=== PATIENT | female | born 1980 | race Asian ===

== ENCOUNTER → 2020-01-27 13:49 | Outpatient (CLI) | payer BC, SELFPAY | PROVIDERS: Visit Provider Physician Assistant | DX: J32.9 Chronic sinusitis, unspecified (principal) | CPT/HCPCS: 87070; 87075; 87077; 87186; 87205 ==

== ENCOUNTER → 2020-01-28 12:44 | Outpatient (CLI) | payer BC, SELFPAY ==
--- NOTE | 2020-01-28 12:45 | DI.CT.S_ITS ---
PROCEDURE: CT SINUS SCREEN WO CON INDICATIONS: sinus pressure, cysts in nose, weeping skin on nose TECHNIQUE: Noncontrast 3.0 mm axial images acquired from the frontal sinuses to the mid-sella, with coronal and sagittal reformats. For radiation dose reduction, the following was used: automated exposure control, adjustment of mA and/or kV according to patient size. COMPARISON: None. FINDINGS: Image quality: Excellent. Maxillary Sinuses: No bony remodeling or destruction. Sinuses are clear except for slight mucosal thickening of the posterior margin of the left maxillary sinus. In contrast, there is an air-fluid level within the posterior aspect of the right maxillary sinus having a maximal thickness of 1 cm.. Ethmoid Air Cells: No bony remodeling or destruction. Sinuses are clear. Sphenoid Sinuses: No bony remodeling or destruction. Sinuses are clear. Frontal Sinuses: No bony remodeling or destruction. Sinuses are clear. Ostiomeatal Complexes: Ostiomeatal complexes are patent. No Gabriele cells. Miscellaneous: Visualized intra-orbital contents are normal. No josseline bullosa or paradoxical turbinate curvature. No nasal septal deviation. IMPRESSION: Acute right maxillary sinusitis appears present given the 1 cm air fluid level identified within the posterior third of the sinus cavity. Dictated by: Dean Puga M.D. on 01/28/2020 at 13:23 Approved by: Dean Puga M.D. on 01/28/2020 at 13:25
== END ==
PROVIDERS: Referring Provider Physician Assistant; Visit Provider Physician Assistant
DX: J01.00 Acute maxillary sinusitis, unspecified (principal)
CPT/HCPCS: 70486

== ENCOUNTER → 2020-06-04 09:08 | Outpatient (CLI) | payer BC, SELFPAY ==
[2020-06-04 09:44] LABS: Add Manual Diff / Slide Review NO; Basophils Absolute Auto 100 /uL (0-100); Basophils Percent Auto 0.8 % (0-2); Eosinophils Absolute Auto 1500 /uL (0-450); Eosinophils Percent Auto 16.5 % (2-4); Hematocrit 42.7 % (36-46); Hemoglobin 14.6 g/dL (12.0-16.0); Lymphocytes Absolute Auto 2000 /uL (1100-4500); Mean Corpuscular HGB Conc 34.1 % (30-36); Mean Corpuscular Hemoglobin 30.3 PG (26-34); Mean Corpuscular Volume 88.8 fL (80-100); Monocytes Absolute Auto 400 /uL (0-900); Monocytes Percent Auto 4.2 % (3-14); Neutrophils Absolute Auto 5200 /uL (1500-7000); Neutrophils Percent Auto 56.5 % (50-75); Platelet Count 271 X10^3/uL (150-400); Red Blood Cell Count 4.81 X10^6/uL (4.0-5.2); Red Cell Distribution Width 12.9 % (11.6-14.8); White Blood Cell Count 9.2 X10^3/uL (4.5-11.0)
[2020-06-04 10:09] LABS: Hemoglobin A1C% w Est Avg Glu 6.2 % (4.0-6.0)
[2020-06-04 10:11] LABS: Alanine Aminotransferase 34 IU/L (<35); Albumin 4.7 g/dL (3.5-5.0); Albumin Globulin Ratio 1.4 (1.0-2.8); Alkaline Phosphatase 90 U/L (38-126); Aspartate Aminotransferase 34 IU/L (14-36); Bilirubin Total 0.4 mg/dL (0.2-1.3); Bilirubin Unconjugated 0.4 mg/dL (0.0-1.1); Cholesterol 302 mg/dL (140-199); Globulin 3.4 g/dL (1.7-4.1); HDL Cholesterol 42 mg/dL (40-60); HEMOLYSIS 16 (0-50); LDL Cholesterol Calculated 194 mg/dL (<100); Total Protein 8.1 g/dL (6.3-8.2); Triglycerides 328 mg/dL (35-150)
[2020-06-04 10:34] LABS: Pregnancy Test Serum,Qual Negative (Negative)
[2020-06-04 10:51] LABS: TSH w/ Reflex to FT4 2.16 uIU/mL (0.47-4.68)
[2020-06-05 07:27] LABS: Dehydroepiandrosterone Sulfate 17.2 ug/dL (57.3-279.2)
[2020-06-08 11:10] LABS: Percent Free Testosterone 2.18 % (0.50-2.80); Testosterone Free 0.49 ng/dL (0.10-0.85); Testosterone Total 22.6 ng/dL (10.0-55.0)
== END ==
PROVIDERS: PCP Family Medicine; Referring Provider Dermatology; Visit Provider Dermatology
DX: Z00.01 Encounter for general adult medical examination with abnormal findings (principal); L70.0 Acne vulgaris; L81.0 Postinflammatory hyperpigmentation; L90.5 Scar conditions and fibrosis of skin; F41.9 Anxiety disorder, unspecified; E28.2 Polycystic ovarian syndrome
CPT/HCPCS: 36415; 80061; 80076; 82627; 83036; 84402; 84403; 84443; 84703; 85025